=== PATIENT | male | born 1990 | race Asian ===

== ENCOUNTER 2017-09-19 10:38 | Emergency (ER) | payer SELFPAY ==
[~2017-09-19] VITALS: Ht 175.3 cm; Wt 72.7 kg
[2017-09-19 11:01] VITALS: BP 132/80
[2017-09-19] MEDS ORDERED: [UNRECOGNIZED DRUG - REMARK] PO (11:04)
[2017-09-19] MEDS ORDERED: LACT1CAP78 PO (11:09)
== END 2017-09-19 11:18 | disposition left against medical advice (07) ==
LOC: EMS 10:39
DX: K59.00 Constipation, unspecified (principal); Z53.21 Procedure and treatment not carried out due to patient leaving prior to being seen by health care provider